=== PATIENT | female | born 1950 | race Two or more races ===

== ENCOUNTER 2025-03-14 10:45 | Inpatient (IN) | payer OTHER ==
[~2025-03-14] VITALS: Ht 167.6 cm; Wt 86.9 kg
[2025-03-14 11:15] VITALS: PULSE 60; RESP 14; O2SAT 96
--- NOTE | 2025-03-14 11:26 | ED.PDOC ---
Musculoskeletal HPI Comments 45-nu[age]ys-female presents to the ED via EMS with a chief complaint of LT knee pain s/p fall onset today (03/14/25). Patient was at home, walking down the stairs when she slipped, fell, landed on her buttocks, and LT leg was bent backwards. Patient is currently experiencing nausea, LT knee pain, rates pain 10/10, worsens with movement as well as LT ankle pain with swelling and tailbone pain. She was given 50 mg Fentanyl and 4 mg Zofran by EMS in route. PMHx DM, HTN. Denies head injury, LOC, abdominal pain, vomiting, diarrhea, headache, dizziness. No other symptoms or modifying factors present at this time. Chief Complaint: Fall Injury Time Seen by MD: 11:13 Primary Care Provider: UNKNOWN Reviewed Notes: Medications, Allergies Allergies: Coded Allergies: Codeine (Verified Allergy, Unknown, 03/14/25) Information Source: Patient, Emergency Med Personnel Mode of Arrival: EMS Location: Left Extremity Location: Ankle, Knee, Other (tailbone) Timing: Hours Prehospital treatment: Pain Meds (Fentanyl 50 mg, Zofran 4 mg ) Severity: Moderate Able to Move Extremity: Yes Bear Weight: Limited Pain: Moderate Mechanism: Spontaneous Circumstances: Fall Onset of Symptoms: After Trauma Symptoms: Swelling, Pain DVT Risk Factors: NONE Associated signs and symptoms: Knee pain, Ankle pain Past Medical History PAST MEDICAL HISTORY: DM, HTN Surgical History: Cholecystectomy, SSAS DEVELOPER History: No Pertinent SSAS DEVELOPER History Family History Family History: Reviewed,noncontributory to illness, No family hx of Cancer, No family hx of DM, No family hx of Heart tramaine, No family hx of HTN, No family hx ofKidney tramaine, No family hx of Liver tramaine, No family hx of Lung tramaine, No family hx of Stroke Social History Smoker: Non-Smoker Alcohol: Denies ETOH Use Drugs: Denies Drug Use Lives In: Home Constitutional: denies: chills, diaphoresis, fatigue, fever, malaise, sweats, weakness, others EENTM: denies: blurred vision, double vision, ear bleeding, ear discharge, ear drainage, ear pain, ear ringing, eye pain, eye redness, hearing loss, mouth pain, mouth swelling, nasal discharge, nose bleeding, nose congestion, nose pain , photophobia, tearing, throat pain, throat swelling, voice changes, others Respiratory: denies: cough, hemoptysis, orthopnea, SOB at rest, shortness of breath, SOB with excertion, stridor, wheezing, others Cardiovascular: denies: chest pain, dizzy spells, diaphoresis, Dyspnea on exertion, edema, irregular heart beat, left arm pain, lightheadedness, palpitations, PND, syncope, others Gastrointestinal: reports: nausea; denies: abdomen distended, abdominal pain, blood streaked bowels, constipated, diarrhea, dysphagia, difficulty swallowing, hematemesis, melena, poor appetite, poor fluid intake, rectal bleeding, rectal pain, vomiting, others Genitourinary: denies: abnormal vagina bleeding, burning, dyspareunia, dysuria, flank pain, frequency, hematuria, incontinence, pain, , vagina discharge, urgency, others Neurological: denies: dizziness, fainting, headache, left sided numbness, left sided weakness, numbness, paresthesia, pre-existing deficit, right sided numbness, right sided weakness, seizure, speech problems, tingling, tremors, weakness, others Musculoskeletal: reports: back pain (tailbone pain), others (LT knee pain, LT ankle pain, tailbone pain); denies: gout, joint pain, joint swelling, muscle pain, muscle stiffness, neck pain Integumetry: denies: bruises, change in color, change in hair/nails, dryness, laceration, lesions, lumps, rash, wounds, others Allergic/Immunocompromised: denies: Difficulty Healing, Frequent Infections, Hives, Itching, others Hematologic/Lymphatic: denies: anemia, blood clots, easy bleeding, easy bruising, swollen glands, others Endocrine: denies: excessive hunger, excessive sweating, excessive thirst, excessive urination, flushing, intolerance to cold, intolerance to heat, unexplained weight gain, unexplained weight loss, others Psychiatric: denies: anxiety, bipolar disorder, depression, hopeless, panic disorder, schizophrenia, sleepless, suicidal, others All Other Systems: Reviewed and Negative Physical Exam General Appearance: Mild Distress, Obese HEENT: Other (Pupils and face symmetric. Moist mucous membranes.) Neck: Full Range of Motion, Normal Inspection Respiratory: Chest Non-Tender, Lungs Clear, No Accessory Muscle Use, No Respiratory Distress, Normal Breath Sounds Cardiovascular: No Edema, No JVD, Regular Rate/Rhythm Breast Exam: Deferred Gastrointestinal: Non Tender, Soft Genitalia: Deferred Pelvic: Deferred Rectal: Deferred Extremities: Tender (Left knee diffuse soft tissue tenderness, left lower leg and ankle diffuse tenderness with lateral soft tissue swelling) Musculoskeletal : Extremity Location: Back (Midline and paraspinal lower lumbosacral/coccygeal tenderness to palpation) Neurologic: Alert (Oriented x4), Other (Able to move all extremities. Light touch sensation intact all extremities.) Cerebellar Function: NOT DONE Reflexes: NOT DONE Skin: Dry, Normal Color, Warm Lymphatic: NOT DONE Was a procedure done? Was a procedure done?: No Differential Diagnosis EXT Differential Diagnosis: Fracture, Sprain, Dislocation, Contusion, Strain, Arthritis X-Ray, Labs, Meds, VS Vital Signs Date Time Temp Pulse Resp B/P (MAP) Pulse Ox O2 Delivery O2 Flow Rate FiO2 03/14/25 14:26 130/39 03/14/25 14:00 98.6 66 12 130/39 (69) 96 98.6 03/14/25 11:15 60 14 96 Room Air* 0 21 03/14/25 11:15 98.4 60 14 124/43 (70) 96 98.4 03/14/25 10:59 98.3 65 20 164/76 (105) 99 98.3 Lab Test 03/14/25 11:35 Range/Units White Blood Count 7.3 4.4-10.8 10^3/uL Red Blood Count 4.41 4.0-5.20 10^6/uL Hemoglobin 11.4 L 12.2-16.2 g/dL Hematocrit 35.0 L 36.0-46.0 % Mean Corpuscular Volume 79.3 L 80.0-100.0 fL Mean Corpuscular Hemoglobin 25.9 L 28.0-32.0 pg Mean Corpuscular Hemoglobin Concent 32.7 32.0-36.0 g/dL Red Cell Distribution Width 15.2 H 11.8-14.3 % Platelet Count 360 140-450 10^3/uL Mean Platelet Volume 6.8 L 6.9-10.8 fL Neutrophils (%) (Auto) 69.6 37.0-80.0 % Lymphocytes (%) (Auto) 21.5 10.0-50.0 % Monocytes (%) (Auto) 6.0 0.0-12.0 % Eosinophils (%) (Auto) 2.1 0.0-7.0 % Basophils (%) (Auto) 0.8 0.0-2.0 % Neutrophils # (Auto) 5.1 1.6-8.6 10 ^3/uL Lymphocytes # (Auto) 1.6 0.4-5.4 10 ^3/uL Monocytes # (Auto) 0.4 0-1.3 10 ^3/uL Eosinophils # (Auto) 0.2 0-0.8 10 ^3/uL Basophils # (Auto) 0.1 0-0.2 10 ^3/uL Nucleated Red Blood Cells 0.0 % Sodium Level 141 136-145 mmol/L Potassium Level 3.4 L 3.5-5.1 mmol/L Chloride Level 104 98-107 mmol/L Carbon Dioxide Level 27 20-31 mmol/L Anion Gap 10 5-15 Blood Urea Nitrogen 24 H 9-23 mg/dL Creatinine 0.99 0.550-1.02 mg/dL Glomerular Filtration Rate Calc 59 >90 mL/min BUN/Creatinine Ratio 24.2 H 10.0-20.0 Serum Glucose 189 H 74-106 mg/dL Calcium Level 9.2 8.7-10.4 mg/dL Current Medications Medications (Trade) Dose Ordered Sig/Dejuan Route Start Time Stop Time Status Last Admin Fentanyl Citrate 50 mcg ONCE ONCE IV 03/14/25 14:30 03/14/25 14:31 DC 03/14/25 14:26 PROCEDURE(s): LKNE3 - L KNEE 3V XRAY REASON: fall pain ORDER NUMBER(s): [id number], ACCESSION NUMBER(s): [id number] EXAM: XR Left Knee, 3 Views CLINICAL INDICATION: fall pain TECHNIQUE: Three views of the left knee. COMPARISON: None FINDINGS: BONES/JOINTS: Unremarkable. No acute fracture. No dislocation. SOFT TISSUES: Unremarkable. OTHER FINDINGS: . IMPRESSION: No acute fracture. ATED BY: NADINE QUIROZ MD DICTATED DATE/TIME: 03/14/25 1253 PROCEDURE(s): LS2CT - LS SPINE WO CONTRAST REASON: fall, lo back and tailbone pain ORDER NUMBER(s): [id number], ACCESSION NUMBER(s): [id number] CLINICAL INFORMATION: Fall injury. Back and tailbone pain. TECHNIQUE: Axial CT images of the lumbar spine were obtained without IV contrast. Coronal and sagittal reformatted images were obtained, reviewed, and stored. One or more of the following dose reduction techniques were used: Automated exposure control. Adjustment of mA and/or kV according to patient size. CTDIvol = 38.94 mGy DLP = 1330.83 mGy-cm COMPARISON: None FINDINGS: Vertebral body alignment is within normal limits. Vertebral body heights are maintained. Posterior elements are intact. No acute fracture. Paraspinal soft tissues are unremarkable. Lumbar disc levels: L1-L2: Moderate disc space narrowing. No significant spinal canal stenosis. Facet hypertrophy with mild bilateral neural foraminal stenoses. L2-L3: Mild disc space narrowing. Diffuse disc bulge and congenital spinal canal narrowing contributes to [id number] spinal canal stenosis. Facet hy pertrophy and dorsal spurring contributes to moderate bilateral neural foraminal stenoses. L3-L4: Moderate disc space narrowing. Disc bulge and congenital spinal canal narrowing contributes to mild spinal canal stenosis and partial effacement of the lateral recesses. Facet hypertrophy and dorsal spurring contributes to moderate bilateral neural foraminal stenoses. Vacuum disc disease also noted. L4-L5: Vacuum disc disease visualized. Moderate disc space narrowing. Posterior disc osteophyte complex causes moderate spinal canal stenosis and partial effacement of the lateral recesses. Facet hypertrophy and encroachment of the neural foramina by the posterior disc osteophyte complex contributes to severe bilateral neural foraminal stenoses. There is a locule of gas within the right side of the spinal canal at this level, likely extension from the vacuum disc disease. L5-S1: Mild disc space narrowing. No significant spinal canal stenosis. Facet hypertrophy with moderate bilateral neural foraminal stenoses. IMPRESSION: 1. No evidence of acute fracture or spondylolisthesis in the lumbar spine. 2. Degenerative disc disease and facet disease with associated spinal canal, subarticular, and neural foraminal stenoses as detailed above. ATED BY: DARIO ROBERTS DO DICTATED DATE/TIME: 03/14/25 1242 PROCEDURE(s): LFEM - L FEMUR XRAY REASON: fall pain ORDER NUMBER(s): [id number], ACCESSION NUMBER(s): [id number] XY L FEMUR XRAY, INDICATION: fall pain TECHNICAL DATA: Frontal and lateral views were obtained of the left femur. COMPARISON: None FINDINGS: There is no osseous abnormality. Soft tissues are normal. IMPRESSION: No acute fracture or dislocation. ATED BY: VADIM ROSALES MD DICTATED DATE/TIME: 03/14/25 1247 PROCEDURE(s): LTBFB - L TIB FIB XRAY REASON: fall pain ORDER NUMBER(s): [id number], ACCESSION NUMBER(s): [id number] XY L TIB FIB XRAY, INDICATION: fall pain TECHNICAL DATA: Frontal and lateral views were obtained of the left leg. COMPARISON: None FINDINGS: There is no osseous abnormality. Soft tissues are normal. IMPRESSION: No acute fracture or dislocation. ATED BY: VADIM ROSALES MD DICTATED DATE/TIME: 03/14/25 1257 X-Ray, Labs, Meds, VS Comment 75-year-old female with a history of hypertension and diabetes brought in by EMS from home status post mechanical fall complaining of low back/coccygeal, left knee and ankle pain Vitals remarkable for BP 164/76 Exam remarkable for lower lumbosacral and coccygeal, left knee and ankle tenderness Rhythm strip independently interpreted by me: Sinus rhythm, rate 65, no ectopy. CT lumbosacral without contrast unremarkable Left femur, left knee, left tib-fib and left ankle x-rays no fracture or dislocation CBC unremarkable, basic metabolic panel remarkable for potassium 3.4 BUN 24, UA pending Patient had received IV fentanyl and Zofran by EMS prior to arrival Patient treated with the following in the ED: Fentanyl 50 mg IV for persistent severe left lower extremity pain, effervescent potassium 50 mEq p.o., 1 L 0.9 normal saline IV bolus On re-evaluation, patient states pain has somewhat improved, however she does not feel she would be able to ambulate if discharged home. Plan will be to admit the patient for pain control and PT/OT evaluation. Time of 1ST Reevaluation: 11:43 Reevaluation 1ST: Unchanged Patient Education/Counseling: Diagnosis, Treatment, Prognosis Family Education/Counseling: No Family Present Departure 1 Departure Time of Disposition: 14:30 Impression: Primary Impression: Coccyx contusion Qualified Codes: S30.0XXA - Contusion of lower back and pelvis, initial encounter Additional Impressions: Strain of knee and leg, left Qualified Codes: S86.912A - Strain of unspecified muscle(s) and tendon(s) at lower leg level, left leg, initial encounter Left ankle sprain Qualified Codes: S93.402A - Sprain of unspecified ligament of left ankle, initial encounter At risk for falls Intractable pain Disposition: ADMITTED INPATIENT Admit to: Med Surg Condition: Guarded Critical Care Note Critical Care Time?: No Stability Stability form required: No Heart Score Heart Score: Heart Score Response (Comments) Value History N/A 0 EKG N/A 0 Age N/A 0 Risk Factors N/A 0 Troponin N/A 0 Total 0 I personally scribed for LAWRENCE PIERSON MD ([email or web address]) on 03/14/25 at 11:26. Electronically submitted by Clara Adorno ([email or web address]). I personally scribed for LAWRENCE PIERSON MD ([email or web address]) on 03/14/25 at 13:01. Electronically submitted by Clara Adorno ([email or web address]). I personally scribed for LAWRENCE PIERSON MD ([email or web address]) on 03/14/25 at 13:03. Electronically submitted by Clara Adorno ([email or web address]). I personally scribed for LAWRENCE PIERSON MD ([email or web address]) on 03/14/25 at 13:03. Electronically submitted by Clara Adorno ([email or web address]). LAWRENCE PIERSON MD March 14, 2025 11:26
[2025-03-14 11:54] LABS: Basophils # (auto) 0.1 10 ^3/uL (0-0.2); Basophils % (auto) 0.8 % (0.0-2.0); Eosinophils # (auto) 0.2 10 ^3/uL (0-0.8); Eosinophils % (auto) 2.1 % (0.0-7.0); Hemoglobin 11.4 g/dL (12.2-16.2); Lymphocytes # (auto) 1.6 10 ^3/uL (0.4-5.4); Lymphocytes % (auto) 21.5 % (10.0-50.0); Mean Corpuscular Hemoglobin 25.9 pg (28.0-32.0); Mean Corpuscular Hgb Conc. 32.7 g/dL (32.0-36.0); Mean Corpuscular Volume 79.3 fL (80.0-100.0); Monocytes # (auto) 0.4 10 ^3/uL (0-1.3); Neutrophils # (auto) 5.1 10 ^3/uL (1.6-8.6); Neutrophils % (auto) 69.6 % (37.0-80.0); Platelet Count (auto) 360 10^3/uL (140-450); Red Blood Cells 4.41 10^6/uL (4.0-5.20); Red Cell Distribution Width 15.2 % (11.8-14.3); White Blood Cell 7.3 10^3/uL (4.4-10.8)
[2025-03-14 12:04] LABS: Chloride 104 mmol/L (98-107); Sodium 141 mmol/L (136-145)
[2025-03-14 12:05] LABS: Anion Gap 10 (5-15); Calcium 9.2 mg/dL (8.7-10.4); Carbon Dioxide 27 mmol/L (20-31)
[2025-03-14 12:06] LABS: Potassium 3.4 mmol/L (3.5-5.1)
[2025-03-14 12:10] LABS: BUN/Creatinine Ratio 24.2 (10.0-20.0)
[2025-03-14 12:11] LABS: Blood Urea Nitrogen 24 mg/dL (9-23); Glucose 189 mg/dL (74-106)
--- NOTE | 2025-03-14 12:44 | DVH ---
CLINICAL INFORMATION: Fall injury. Back and tailbone pain. TECHNIQUE: Axial CT images of the lumbar spine were obtained without IV contrast. Coronal and sagitt al reformatted images were obtained, reviewed, and stored. One or more of the following dose reducti on techniques were used: Automated exposure control. Adjustment of mA and/or kV according to patient size. CTDIvol = 38.94 mGy DLP = 1330.83 mGy-cm COMPARISON: None FINDINGS: Vertebral body alignment is within normal limits. Vertebral body heights are maintained. Posterior el ements are intact. No acute fracture. Paraspinal soft tissues are unremarkable. Lumbar disc levels: L1-L2: Moderate disc space narrowing. No significant spinal canal stenosis. Facet hypertrophy with m ild bilateral neural foraminal stenoses. L2-L3: Mild disc space narrowing. Diffuse disc bulge and congenital spinal canal narrowing contribute s to fiqx-he-fuymizmr spinal canal stenosis. Facet hypertrophy and dorsal spurring contributes to mod erate bilateral neural foraminal stenoses. L3-L4: Moderate disc space narrowing. Disc bulge and congenital spinal canal narrowing contributes to mild spinal canal stenosis and partial effacement of the lateral recesses. Facet hypertrophy and zachariah gio spurring contributes to moderate bilateral neural foraminal stenoses. Vacuum disc disease also no sierra. L4-L5: Vacuum disc disease visualized. Moderate disc space narrowing. Posterior disc osteophyte comp william causes moderate spinal canal stenosis and partial effacement of the lateral recesses. Facet hyper trophy and encroachment of the neural foramina by the posterior disc osteophyte complex contributes t o severe bilateral neural foraminal stenoses. There is a locule of gas within the right side of the s luma canal at this level, likely extension from the vacuum disc disease. L5-S1: Mild disc space narrowing. No significant spinal canal stenosis. Facet hypertrophy with modera te bilateral neural foraminal stenoses. IMPRESSION: 1. No evidence of acute fracture or spondylolisthesis in the lumbar spine. 2. Degenerative disc disease and facet disease with associated spinal canal, subarticular, and neural foraminal stenoses as detailed above.
--- NOTE | 2025-03-14 12:50 | DVH ---
XY L FEMUR XRAY, INDICATION: fall pain TECHNICAL DATA: Frontal and lateral views were obtained of the left femur. COMPARISON: None FINDINGS: There is no osseous abnormality. Soft tissues are normal. IMPRESSION: No acute fracture or dislocation.
--- NOTE | 2025-03-14 12:55 | DVH ---
EXAM: XR Left Knee, 3 Views CLINICAL INDICATION: fall pain TECHNIQUE: Three views of the left knee. COMPARISON: None FINDINGS: BONES/JOINTS: Unremarkable. No acute fracture. No dislocation. SOFT TISSUES: Unremarkable. OTHER FINDINGS: . IMPRESSION: No acute fracture.
--- NOTE | 2025-03-14 12:59 | DVH ---
XY L TIB FIB XRAY, INDICATION: fall pain TECHNICAL DATA: Frontal and lateral views were obtained of the left leg. COMPARISON: None FINDINGS: There is no osseous abnormality. Soft tissues are normal. IMPRESSION: No acute fracture or dislocation.
[2025-03-14] MEDS: fentaNYL CITRATE 100 MCG/2 ML VL IV ONE (14:26)
[2025-03-14] MEDS: SODIUM CHLORIDE 0.9% 1,000 ML IV ONE (14:49)
[2025-03-14] MEDS: POTASSIUM EFFERVESENT TAB 25 MEQ PO ONE (14:49)
[2025-03-14] MEDS ORDERED: LOSA-534 PO (15:43)
[2025-03-14] MEDS ORDERED: ATOR10TA52 PO (15:43)
[2025-03-14] MEDS ORDERED: CHOL20003 PO (15:43)
[2025-03-14] MEDS ORDERED: HYDR25TA5 PO (15:43)
[2025-03-14] MEDS ORDERED: ASPI-325 PO (15:43)
[2025-03-14] MEDS ORDERED: METO-159 PO (15:43)
[2025-03-14] MEDS ORDERED: MORPHINE SULFATE INJ 2 MG/ml SYRG IV PRN (15:45)
[2025-03-14] MEDS ORDERED: DEXTROSE (50%) 50ML SYRG IV PRN (15:45)
[2025-03-14] MEDS ORDERED: ACETAMINOPHEN 325 MG TAB PO PRN (15:45)
--- NOTE | 2025-03-14 15:49 | DVHHP2 ---
History of Present Illness Reason for Visit: Left knee and left ankle pain status post mechanical fall History of Present Illness Payton Frye is a 75-year-old female with past medical history of hypertension, diabetes, kidney stones, degenerative disc disease, cholecystectomy, and who presents to the ED with left knee pain and left ankle pain status post mechanical fall. Patient states that she was walking down 2 sets of stairs when she finally reached the bottom of the 1st 1 she made a turn and tripped and fell from the carpet on the stairs and fell down the 2nd set of stairs and landed on the last step. She reports that her left leg went back completely. She complains 10/10 aching pain that is constant. 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 Patient's Ike is at the bedside. Patient denies any chest pain, fever, chills, shortness of breath, lightheadedness, weakness, dizziness, abdominal pain, nausea, vomiting, diarrhea, recent ingestion of spoiled food, recent travels, or recent sick contacts. Cardiovascular: HTN Endocrine: Diabetes Past Medical History Degenerative disc disease Kidney stones Past Surgical History: Cholecystectomy, Family History: Other (Both parents ) Smoke: No ALCOHOL: none Drugs: None Lives: with Family Domestic Violence: Neg Review of Systems Musculoskeletal: other (Left knee pain and ankle pain) Allergies: Coded Allergies: Codeine (Verified Allergy, Unknown, 03/14/25) Medications Current Medications Medications Dose Ordered Sig/Dejuan Route Start Time Stop Time Status Last Admin Dose Admin Diagnostic Test (Pha) 1 strip ACHS 03/14/25 17:00 UNV Insulin Human Regular ACHS SC 03/14/25 17:00 UNV Dextrose 50 ml UD PRN IV 03/14/25 15:45 UNV Acetaminophen/ Hydrocodone Bitart 1 tab Q4HP PRN PO 03/14/25 15:45 UNV Ondansetron HCl 4 mg Q4HP PRN IV 03/14/25 15:45 UNV Acetaminophen 650 mg Q6HP PRN PO 03/14/25 15:45 UNV Morphine Sulfate 2 mg Q4HPRN PRN IV 03/14/25 15:45 UNV Enoxaparin Sodium 40 mg DAILY SC 03/14/25 15:45 UNV Exam Vital Signs Vital Signs Date Time Temp Pulse Resp B/P (MAP) Pulse Ox O2 Delivery O2 Flow Rate FiO2 03/14/25 14:26 130/39 03/14/25 14:00 98.6 66 12 96 98.6 03/14/25 11:15 Room Air* 0 21 General Appearance: Alert, Oriented X3, Cooperative, No acute distress HEENT: Atraumatic, PERRLA, EOMI, Mucous membr. moist/pink Respiratory: Clear to auscultation, Normal air movement Cardiovascular: Regular rate, Normal S1, Normal S2, No murmurs Abdominal: Normal bowel sounds, Soft, No tenderness, No hepatospenomegaly, No masses Extremities: No edema Neuro: Normal speech, Normal tone, Sensation intact Psych/Mental Status: Mental status NL, Mood NL Labs/Xrays Labs Test 03/14/25 11:35 Range/Units White Blood Count 7.3 4.4-10.8 10^3/uL Red Blood Count 4.41 4.0-5.20 10^6/uL Hemoglobin 11.4 L 12.2-16.2 g/dL Hematocrit 35.0 L 36.0-46.0 % Mean Corpuscular Volume 79.3 L 80.0-100.0 fL Mean Corpuscular Hemoglobin 25.9 L 28.0-32.0 pg Mean Corpuscular Hemoglobin Concent 32.7 32.0-36.0 g/dL Red Cell Distribution Width 15.2 H 11.8-14.3 % Platelet Count 360 140-450 10^3/uL Mean Platelet Volume 6.8 L 6.9-10.8 fL Neutrophils (%) (Auto) 69.6 37.0-80.0 % Lymphocytes (%) (Auto) 21.5 10.0-50.0 % Monocytes (%) (Auto) 6.0 0.0-12.0 % Eosinophils (%) (Auto) 2.1 0.0-7.0 % Basophils (%) (Auto) 0.8 0.0-2.0 % Neutrophils # (Auto) 5.1 1.6-8.6 10 ^3/uL Lymphocytes # (Auto) 1.6 0.4-5.4 10 ^3/uL Monocytes # (Auto) 0.4 0-1.3 10 ^3/uL Eosinophils # (Auto) 0.2 0-0.8 10 ^3/uL Basophils # (Auto) 0.1 0-0.2 10 ^3/uL Nucleated Red Blood Cells 0.0 % Sodium Level 141 136-145 mmol/L Potassium Level 3.4 L 3.5-5.1 mmol/L Chloride Level 104 98-107 mmol/L Carbon Dioxide Level 27 20-31 mmol/L Anion Gap 10 5-15 Blood Urea Nitrogen 24 H 9-23 mg/dL Creatinine 0.99 0.550-1.02 mg/dL Glomerular Filtration Rate Calc 59 >90 mL/min BUN/Creatinine Ratio 24.2 H 10.0-20.0 Serum Glucose 189 H 74-106 mg/dL Calcium Level 9.2 8.7-10.4 mg/dL US BiLat Lower DVT HISTORY: r/o dvt COMPARISON: None TECHNIQUE: Duplex doppler evaluation of the deep venous system of the lower extremity from the common femoral veins, superficial femoral vein, great saphenous vein, deep femoral vein, popliteal vein, and calf veins, including color doppler and spectral/pulsed waveform analysis, was performed. FINDINGS: Right: - Common femoral vein: Compressible - Deep femoral vein: Compressible - Femoral vein: Compressible - Popliteal vein: Compressible - Posterior tibial vein: Waveforms present - Other: Nothing Left: - Common femoral vein: Compressible - Deep femoral vein: Compressible - Femoral vein: Compressible - Popliteal vein: Compressible - Posterior tibial vein: Waveforms present - Other: Nothing IMPRESSION: No right or left lower extremity deep venous thrombosis. EXAM: XR Left Knee, 3 Views CLINICAL INDICATION: fall pain TECHNIQUE: Three views of the left knee. COMPARISON: None FINDINGS: BONES/JOINTS: Unremarkable. No acute fracture. No dislocation. SOFT TISSUES: Unremarkable. OTHER FINDINGS: . IMPRESSION: No acute fracture. XY L TIB FIB XRAY, INDICATION: fall pain TECHNICAL DATA: Frontal and lateral views were obtained of the left leg. COMPARISON: None FINDINGS: There is no osseous abnormality. Soft tissues are normal. IMPRESSION: No acute fracture or dislocation. CLINICAL INFORMATION: Fall injury. Back and tailbone pain. TECHNIQUE: Axial CT images of the lumbar spine were obtained without IV contrast. Coronal and sagittal reformatted images were obtained, reviewed, and stored. One or more of the following dose reduction techniques were used: Automated exposure control. Adjustment of mA and/or kV according to patient size. CTDIvol = 38.94 mGy DLP = 1330.83 mGy-cm COMPARISON: None FINDINGS: Vertebral body alignment is within normal limits. Vertebral body heights are maintained. Posterior elements are intact. No acute fracture. Paraspinal soft tissues are unremarkable. Lumbar disc levels: L1-L2: Moderate disc space narrowing. No significant spinal canal stenosis. Facet hypertrophy with mild bilateral neural foraminal stenoses. L2-L3: Mild disc space narrowing. Diffuse disc bulge and congenital spinal canal narrowing contributes to [id number] spinal canal stenosis. Facet h ypertrophy and dorsal spurring contributes to moderate bilateral neural foraminal stenoses. L3-L4: Moderate disc space narrowing. Disc bulge and congenital spinal canal narrowing contributes to mild spinal canal stenosis and partial effacement of the lateral recesses. Facet hypertrophy and dorsal spurring contributes to moderate bilateral neural foraminal stenoses. Vacuum disc disease also noted. L4-L5: Vacuum disc disease visualized. Moderate disc space narrowing. Posterior disc osteophyte complex causes moderate spinal canal stenosis and partial effacement of the lateral recesses. Facet hypertrophy and encroachment of the neural foramina by the posterior disc osteophyte complex contributes to severe bilateral neural foraminal stenoses. There is a locule of gas within the right side of the spinal canal at this level, likely extension from the vacuum disc disease. L5-S1: Mild disc space narrowing. No significant spinal canal stenosis. Facet hypertrophy with moderate bilateral neural foraminal stenoses. IMPRESSION: 1. No evidence of acute fracture or spondylolisthesis in the lumbar spine. 2. Degenerative disc disease and facet disease with associated spinal canal, subarticular, and neural foraminal stenoses as detailed above. XY L FEMUR XRAY, INDICATION: fall pain TECHNICAL DATA: Frontal and lateral views were obtained of the left femur. COMPARISON: None FINDINGS: There is no osseous abnormality. Soft tissues are normal. IMPRESSION: No acute fracture or dislocation. XY L FEMUR XRAY, INDICATION: fall pain TECHNICAL DATA: Frontal and lateral views were obtained of the left femur. COMPARISON: None FINDINGS: There is no osseous abnormality. Soft tissues are normal. IMPRESSION: No acute fracture or dislocation. Assessment/Plan Assessment/Plan Assessment Left knee and ankle pain status post mechanical fall likely contusion Hypokalemia Diabetes type 2 Hard of hearing History of hypertension History of degenerative disc disease History of nephrolithiasis History of cholecystectomy History of Plan Admit to tele Left knee x-ray noted NS 1L given ED Replete lytes Pain management Antiemetics UA Left tib-fib x-ray noted Left femur x-ray noted CT lumbar spine noted Hemoglobin A1c ISS and Accu-Cheks Diet Ultrasound bilateral lower extremity venous Home medications reconciled DVT prophylaxis-Lovenox PUD prophylaxis-not indicated no history of GERD or GI bleed Discussed plan of care with patient, patient's spouse, and nurse Plan discussed with: Patient My Orders Orders - DIRK WHARTON Procedure Category Date Status Time Hemoglobin A1c LAB 03/14/25 In Process 15:39 Glucose Blood PHA 03/14/25 Logged (Accu-Chek Comfort 17:00 Insulin R (Human) PHA 03/14/25 Logged (Insulin R) 17:00 Dextrose 50% Syringe PHA 03/14/25 Logged 15:45 Admit ADMIT 03/14/25 Transmitted 15:39 Allergies JANKI 03/14/25 In Process 15:39 Code Status CODE 03/14/25 Transmitted 15:39 Hydrocodone-Acet PHA 03/14/25 Logged 5/325mg Tab ([place] 15:45 Ondansetron Hcl PHA 03/14/25 Logged (Zofran) 15:45 Complete Blood Count LAB 03/15/25 Verified 04:00 Comprehensive LAB 03/15/25 Verified Metabolic Panel 04:00 Cardiac DIET 03/14/25 Transmitted Diet-2gna,Lofat,Lochol Dinner Acetaminophen Tablet PHA 03/14/25 Logged (Tylenol Tablet) 15:45 Morphine Sulfate PHA 03/14/25 Logged Injection 15:45 Enoxaparin Sodium PHA 03/14/25 Logged (Lovenox) 15:45 Bilat Lower Dvt US 03/14/25 Logged 15:41 Date of Service: March 14, 2025 Billing Provider: DIRK WHARTON Common Visit Codes: [id number] INP/OBS CARE (HIGH) DIRK WHARTON March 14, 2025 15:49
[2025-03-14] MEDS: ENOXAPARIN SOD 40 MG/0.4 ML SYRINGE SC SCH (16:00)
--- NOTE | 2025-03-14 16:21 | DVH ---
US BiLat Lower DVT HISTORY: r/o dvt COMPARISON: None TECHNIQUE: Duplex doppler evaluation of the deep venous system of the lower extremity from the common femoral veins, superficial femoral vein, great saphenous vein, deep femoral vein, popliteal vein, an d calf veins, including color doppler and spectral/pulsed waveform analysis, was performed. FINDINGS: Right: - Common femoral vein: Compressible - Deep femoral vein: Compressible - Femoral vein: Compressible - Popliteal vein: Compressible - Posterior tibial vein: Waveforms present - Other: Nothing Left: - Common femoral vein: Compressible - Deep femoral vein: Compressible - Femoral vein: Compressible - Popliteal vein: Compressible - Posterior tibial vein: Waveforms present - Other: Nothing IMPRESSION: No right or left lower extremity deep venous thrombosis.
[2025-03-14] MEDS: InsuLIN REG 1unit/0.01ml Soln (100units/ml) SC SCH (17:00)
[2025-03-14] MEDS: ACCU-CHEK COMFORT CURVE STRIP VI SCH (17:23)
[2025-03-14 18:08] LABS: Urine Bacteria FEW /hpf (None Seen); Urine Blood Negative /uL (Negative); Urine Budding Yeast OCCASIONAL /hpf (None Seen); Urine Clarity Turbid (Clear); Urine Color Colorless (Yellow); Urine Protein, UAD Negative (Negative); Urine Specific Gravity 1.013 (1.001-1.035); Urine Squamous Epithelial Cell FEW /hpf (<5); Urine Urobilinogen Normal (Negative); Urine WBC 63 /HPF (0-5)
[2025-03-14 18:36] VITALS: BP 135/49; PULSE 66; RESP 20; TEMP 98.1; O2SAT 97
[2025-03-14 20:00] VITALS: PULSE 67; PULSE 71; RESP 20; O2SAT 95
[2025-03-14 21:00] VITALS: BP 126/47; PULSE 71; RESP 20; TEMP 98.8; O2SAT 94
[2025-03-14] MEDS: ATORVASTATIN 20 MG TAB PO SCH (21:48)
[2025-03-14] MEDS: HYDROcodone-ACET 5/325MG TAB PO PRN (23:09)
[2025-03-15] VITALS (9 sets, daily range): BP systolic 100–147; BP diastolic 43–68; PULSE 55–76; RESP 16–20; TEMP 97.4–98.7; O2SAT 95–100
[2025-03-15 07:07] LABS: Basophils # (auto) 0.1 10 ^3/uL (0-0.2); Basophils % (auto) 0.9 % (0.0-2.0); Eosinophils # (auto) 0.1 10 ^3/uL (0-0.8); Eosinophils % (auto) 1.7 % (0.0-7.0); Hematocrit 33.4 % (36.0-46.0); Lymphocytes # (auto) 1.9 10 ^3/uL (0.4-5.4); Lymphocytes % (auto) 25.8 % (10.0-50.0); Mean Corpuscular Hgb Conc. 32.9 g/dL (32.0-36.0); Mean Corpuscular Volume 78.8 fL (80.0-100.0); Monocytes # (auto) 0.7 10 ^3/uL (0-1.3); Monocytes % (auto) 8.8 % (0.0-12.0); Neutrophils # (auto) 4.7 10 ^3/uL (1.6-8.6); Neutrophils % (auto) 62.8 % (37.0-80.0); Nucleated Red Blood Cells % 0.1 %; Platelet Count (auto) 358 10^3/uL (140-450); Red Blood Cells 4.24 10^6/uL (4.0-5.20); White Blood Cell 7.4 10^3/uL (4.4-10.8)
[2025-03-15 07:30] LABS: Alanine Aminotransferase 15 U/L (7-40); Albumin 4.2 g/dL (3.2-4.8); Alkaline Phosphatase 43 U/L (46-116); Anion Gap 10 (5-15); Aspartate Aminotransferase 16 U/L (13-40); BUN/Creatinine Ratio 19.1 (10.0-20.0); Blood Urea Nitrogen 17 mg/dL (9-23); Calcium 9.8 mg/dL (8.7-10.4); Carbon Dioxide 25 mmol/L (20-31); Chloride 105 mmol/L (98-107); Glucose 113 mg/dL (74-106); Potassium 3.7 mmol/L (3.5-5.1); Sodium 140 mmol/L (136-145); Total Protein 6.7 g/dL (5.7-8.2)
[2025-03-15 07:34] LABS: Bilirubin, Total 1.8 mg/dL (0.2-1.0)
[2025-03-15] MEDS: METOPROLOL TARTRATE 50 MG TAB PO SCH (08:20)
[2025-03-15] MEDS: CHOLECALCIFEROL (VITD3) 1,000UNIT=25mCg TAB PO SCH (08:21)
[2025-03-15] MEDS: ASPirin-EC 81 mg tab PO SCH (08:21)
[2025-03-15] MEDS: hydroCHLOROthiazide 25 MG TAB PO SCH (08:21)
[2025-03-15] MEDS: LOSARTAN POTASSIUM 50 MG TAB PO SCH (08:22)
[2025-03-15] MEDS ORDERED: PATIENTS OWN MEDICATION (Metoprolol Tartrate 1 TAB) PO SCH (10:00)
[2025-03-15] MEDS ORDERED: PATIENTS OWN MEDICATION (Cholecalciferol (Vitamin D-3 Super Strengt) 1 TAB) PO SCH (10:00)
--- NOTE | 2025-03-15 11:58 | DVHPN2 ---
Changes from previous H/P or p: No Changes, Changes Musculoskeletal: other (Left knee pain and ankle pain) Objective Vitals Vital Signs Date Time Temp Pulse Resp B/P (MAP) Pulse Ox O2 Delivery O2 Flow Rate FiO2 03/15/25 09:20 65 130/54 03/15/25 09:07 97.7 18 95 97.7 03/15/25 08:00 Room Air* 0 21 Intake/Output Intake and Output 03/15/25 07:00 Intake Total 1300 ml Balance 1300 ml Intake Oral 300 ml IV Total 1000 ml # Voids 3 # Bowel Movements 1 Medications Current Medications Medications Dose Ordered Sig/Dejuan Route Start Time Stop Time Status Last Admin Dose Admin Diagnostic Test (Pha) 1 strip ACHS 03/14/25 17:00 03/15/25 06:23 1 STRIP Insulin Human Regular ACHS SC 03/14/25 17:00 Dextrose 50 ml UD PRN IV 03/14/25 15:45 Acetaminophen/ Hydrocodone Bitart 1 tab Q4HP PRN PO 03/14/25 15:45 03/15/25 08:49 1 TAB Ondansetron HCl 4 mg Q4HP PRN IV 03/14/25 15:45 Acetaminophen 650 mg Q6HP PRN PO 03/14/25 15:45 Morphine Sulfate 2 mg Q4HPRN PRN IV 03/14/25 15:45 Enoxaparin Sodium 40 mg DAILY SC 03/14/25 15:45 03/15/25 10:03 40 MG Aspirin 81 mg DAILY PO 03/15/25 10:00 03/15/25 08:21 81 MG Hydrochlorothiazide 25 mg DAILY PO 03/15/25 10:00 03/15/25 08:21 25 MG Losartan Potassium 50 mg DAILY PO 03/15/25 10:00 03/15/25 08:22 50 MG Patient Own Medication 1 tab DAILY PO 03/15/25 10:00 UNV Patient Own Medication 1 tab DAILY PO 03/15/25 10:00 UNV Atorvastatin Calcium 10 mg HS PO 03/14/25 22:00 03/14/25 21:48 10 MG Cholecalciferol 2,000 unit DAILY PO 03/15/25 10:00 03/15/25 08:21 2,000 UNIT Metoprolol Tartrate 100 mg DAILY PO 03/15/25 10:00 03/15/25 08:20 100 MG Laboratory Results Laboratory Tests 03/15/25 06:19 Chemistry Test 03/15/25 06:19 Albumin 4.2 g/dL (3.2-4.8) Calcium Level 9.8 mg/dL (8.7-10.4) Total Protein 6.7 g/dL (5.7-8.2) LFT Test 03/15/25 06:19 Alanine Aminotransferase (ALT) 15 U/L (7-40) Alkaline Phosphatase 43 U/L (46-116) L Aspartate Amino Transferase (AST) 16 U/L (13-40) Total Bilirubin 1.8 mg/dL (0.2-1.0) H Urinalysis Test 03/14/25 16:20 Urine Color Colorless (Yellow) Urine Clarity Turbid (Clear) H Urine pH 7.0 (5.0-9.0) Urine Specific [place] 1.013 (1.001-1.035) Urine Protein Negative (Negative) Urine Ketones Negative (Negative) Urine Blood Negative /uL (Negative) Urine Nitrite 1+ (Negative) H Urine Bilirubin Negative (Negative) Urine Urobilinogen Normal mg/dL (Negative) Urine Leukocyte Esterase 2+ /uL (Negative) Urine RBC 3 /hpf (0 - 4) Urine Microscopic WBC 63 /HPF (0-5) H Urine Squamous Epithelial Cells Few /hpf (<5) Urine Bacteria Few /hpf (None Seen) H Urine Yeast (Budding) Occasional /hpf (None Urine Glucose Normal mg/dL (Normal) Labs and/or images reviewed: Labs reviewed by me, Image(s) reviewed by me Assessment/Plan Assessment/Plan Acute pain left knee and ankle status post mechanical fall: X-ray left femur left knee left ankle negative Chronic DJD lumbar spine, LS spine negative for any fracture DVT ruled out left lower extremety Hypotension Diabetes History of kidney stones UTI urine cultures Rocephin Time spent 50 minutes Advanced care planning time 20 minutes Patient is full code Left lower front chest pain rule out rib fractures: CT chest ordered Plan discussed with: Patient My Orders Orders - SAMPSON BLAKELY MD Procedure Category Date Status Time Urine Bacterial LD 03/15/25 Transmitted Culture 11:51 Ceftriaxone Ivpb PHA 03/16/25 Verified Rocephin 09:00 Ceftriaxone Ivpb PHA 03/15/25 Verified Rocephin 12:00 Date of Service: March 15, 2025 Billing Provider: SAMPSON BLAKELY MD Common Visit Codes: [id number] INP/OBS CARE(HIGH) SAMPSON BLAKELY MD March 15, 2025 11:58
[2025-03-15] MEDS: cefTRIAXone 1GM/50ML D5W 50 ML IV ONE (12:48)
[2025-03-15] MEDS: ONDANSETRON HCL 4 MG/2 ML VIAL IV PRN (13:55)
[2025-03-16] VITALS: BP 138/67; PULSE 66; RESP 20; TEMP 98.4; O2SAT 99
[2025-03-16 05:00] VITALS: BP 154/66; PULSE 65; RESP 20; TEMP 98.2; O2SAT 94
[2025-03-16 08:00] VITALS: PULSE 74; RESP 20; O2SAT 97
[2025-03-16 08:30] VITALS: BP 130/63; PULSE 71; RESP 16; TEMP 97.7; O2SAT 97
[2025-03-16] MEDS: cefTRIAXone 1GM/50ML D5W 50 ML IV SCH (08:44)
[2025-03-16 12:32] VITALS: BP 126/71; PULSE 67; RESP 16; TEMP 97.9; O2SAT 99
--- NOTE | 2025-03-16 12:58 | DVH ---
Procedure: CT CHEST WITHOUT CONTRAST Reason for study/Clinical History: R/O Left Rib fracture Comparison Study: None Exam Date: 03/16/2025 12:09 PM TECHNIQUE: Multidetector CT of the chest was performed from the lung apices to the upper abdomen with out the use of intravenous contract. Axial, coronal and sagittal multiplanar reformats were performed . Radiation Dose Information: CT Dose: CTDI volume is 16.17 mGy. Dose-length product is 564.24 mGy*cm The dose indicators for CT are the volume Computed Tomography (CT) Dose Index (CTDIvol) and the Dose Length Product (DLP), and are measured in units of mGy and mGy-cm, respectively. These indicators are not patient dose, but values generated from the CT scanner acquisition factors. The report includes radiation exposure data for exposures received during this examination. FINDINGS: Lower neck: Normal thyroid. Lungs: No focal consolidation, pleural effusion or pneumothorax. Heart/Vascular Structures: Heart size is enlarged. No pericardial effusion. Coronary artery calcifica tion is present. The aorta is tortuous. Lymph Nodes: No adenopathy Pleura: No pleural effusion or significant pneumothorax. Musculoskeletal: No acute osseous abnormality. No evidence of rib fracture Soft tissues: Normal. Upper abdomen: Limited portions of the upper abdomen are unremarkable. IMPRESSION: 1. No acute intrathoracic abnormality. No evidence of rib fracture. Signs of chronic hypertensive ath erosclerotic cardiovascular disease Radiation optimization: All CT scans at this facility use at least one of these dose optimization cindi hniques: automated exposure control mA and/or kV adjustment per patient size (includes targeted exam s where dose is matched to clinical indication) or iterative reconstruction.
[2025-03-16] MEDS ORDERED: HYDR-4902 PO (13:23)
[2025-03-16] MEDS ORDERED: LEVO500T91 PO (13:25)
--- NOTE | 2025-03-16 13:25 | DVHPN2 ---
Reviewed: Care Plan, H&P, Labs, Medications, Previous Orders, Radiology Changes from previous H/P or p: No Changes Musculoskeletal: other (Left knee pain and ankle pain) Objective Vitals Vital Signs Date Time Temp Pulse Resp B/P (MAP) Pulse Ox O2 Delivery O2 Flow Rate FiO2 03/16/25 12:32 97.9 67 16 126/71 (89) 99 97.9 03/16/25 08:00 Room Air* 0 21 Intake/Output Intake and Output 03/16/25 07:00 Intake Total 860 ml Balance 860 ml Intake Oral 860 ml # Voids 2 Medications Current Medications Medications Dose Ordered Sig/Dejuan Route Start Time Stop Time Status Last Admin Dose Admin Diagnostic Test (Pha) 1 strip ACHS 03/14/25 17:00 03/16/25 11:54 1 STRIP Insulin Human Regular ACHS SC 03/14/25 17:00 Dextrose 50 ml UD PRN IV 03/14/25 15:45 Acetaminophen/ Hydrocodone Bitart 1 tab Q4HP PRN PO 03/14/25 15:45 03/16/25 08:39 1 TAB Ondansetron HCl 4 mg Q4HP PRN IV 03/14/25 15:45 03/15/25 20:42 4 MG Acetaminophen 650 mg Q6HP PRN PO 03/14/25 15:45 Morphine Sulfate 2 mg Q4HPRN PRN IV 03/14/25 15:45 Enoxaparin Sodium 40 mg DAILY SC 03/14/25 15:45 03/16/25 10:00 40 MG Aspirin 81 mg DAILY PO 03/15/25 10:00 03/16/25 08:39 81 MG Hydrochlorothiazide 25 mg DAILY PO 03/15/25 10:00 03/16/25 08:42 25 MG Losartan Potassium 50 mg DAILY PO 03/15/25 10:00 03/16/25 08:40 50 MG Patient Own Medication 1 tab DAILY PO 03/15/25 10:00 UNV Patient Own Medication 1 tab DAILY PO 03/15/25 10:00 UNV Atorvastatin Calcium 10 mg HS PO 03/14/25 22:00 03/14/25 21:48 10 MG Cholecalciferol 2,000 unit DAILY PO 03/15/25 10:00 03/16/25 08:40 2,000 UNIT Metoprolol Tartrate 100 mg DAILY PO 03/15/25 10:00 03/16/25 08:43 100 MG Ceftriaxone Sodium 50 ml @ 100 mls/hr DAILY@09 IV 03/16/25 09:00 03/16/25 08:44 100 MLS/HR Laboratory Results Laboratory Tests 03/15/25 06:19 Urinalysis Test 03/14/25 16:20 Urine Color Colorless (Yellow) Urine Clarity Turbid (Clear) H Urine pH 7.0 (5.0-9.0) Urine Specific [place] 1.013 (1.001-1.035) Urine Protein Negative (Negative) Urine Ketones Negative (Negative) Urine Blood Negative /uL (Negative) Urine Nitrite 1+ (Negative) H Urine Bilirubin Negative (Negative) Urine Urobilinogen Normal mg/dL (Negative) Urine Leukocyte Esterase 2+ /uL (Negative) Urine RBC 3 /hpf (0 - 4) Urine Microscopic WBC 63 /HPF (0-5) H Urine Squamous Epithelial Cells Few /hpf (<5) Urine Bacteria Few /hpf (None Seen) H Urine Yeast (Budding) Occasional /hpf (None Urine Glucose Normal mg/dL (Normal) Labs and/or images reviewed: Labs reviewed by me, Image(s) reviewed by me Assessment/Plan Assessment/Plan Acute pain left knee and ankle status post mechanical fall: X-ray left femur left knee left ankle negative Chronic DJD lumbar spine, LS spine negative for any fracture DVT ruled out left lower extremety Hypotension Diabetes History of kidney stones UTI urine cultures Rocephin Time spent 50 minutes Advanced care planning time 20 minutes Patient is full code Left lower front chest pain, CT chest without contrast shows no rib fractures Plan discussed with: Patient My Orders Orders - SAMPSON BLAKELY MD Procedure Category Date Status Time Chest Without Contrast CT 03/16/25 Resulted 10:36 Date of Service: March 16, 2025 Billing Provider: SAMPSON BLAKELY MD Common Visit Codes: [id number] INP/OBS CARE(HIGH) SAMPSON BLAKELY MD March 16, 2025 13:25
--- NOTE | 2025-03-16 13:29 | DVHDS2 ---
Discharge Summary Date of Admission March 14, 2025 at 15:39 Date of Discharge: March 16, 2025 Admitting Diagnosis Left knee and ankle pain status post fall Wounds: None Labs/Diagnostic Data: Laboratory Results Test 03/16/25 05:20 03/15/25 06:19 03/14/25 16:20 03/14/25 11:35 POC Glucose 102 mg/dl (70-106) White Blood Count 7.4 10^3/uL (4.4-10.8) Red Blood Count 4.24 10^6/uL (4.0-5.20) Hemoglobin 11.0 g/dL (12.2-16.2) Hematocrit 33.4 % (36.0-46.0) Mean Corpuscular Volume 78.8 fL (80.0-100.0) Mean Corpuscular Hemoglobin 26.0 pg (28.0-32.0) Mean Corpuscular Hemoglobin Concent 32.9 g/dL (32.0-36.0) Red Cell Distribution Width 15.0 % (11.8-14.3) Platelet Count 358 10^3/uL (140-450) Mean Platelet Volume 7.0 fL (6.9-10.8) Neutrophils (%) (Auto) 62.8 % (37.0-80.0) Lymphocytes (%) (Auto) 25.8 % (10.0-50.0) Monocytes (%) (Auto) 8.8 % (0.0-12.0) Eosinophils (%) (Auto) 1.7 % (0.0-7.0) Basophils (%) (Auto) 0.9 % (0.0-2.0) Neutrophils # (Auto) 4.7 10 ^3/uL (1.6-8.6) Lymphocytes # (Auto) 1.9 10 ^3/uL (0.4-5.4) Monocytes # (Auto) 0.7 10 ^3/uL (0-1.3) Eosinophils # (Auto) 0.1 10 ^3/uL (0-0.8) Basophils # (Auto) 0.1 10 ^3/uL (0-0.2) Nucleated Red Blood Cells 0.1 % Sodium Level 140 mmol/L (136-145) Potassium Level 3.7 mmol/L (3.5-5.1) Chloride Level 105 mmol/L (98-107) Carbon Dioxide Level 25 mmol/L (20-31) Anion Gap 10 (5-15) Blood Urea Nitrogen 17 mg/dL (9-23) Creatinine 0.89 mg/dL (0.550-1.02) Glomerular Filtration Rate Calc 68 mL/min (>90) BUN/Creatinine Ratio 19.1 (10.0-20.0) Serum Glucose 113 mg/dL (74-106) Calcium Level 9.8 mg/dL (8.7-10.4) Total Bilirubin 1.8 mg/dL (0.2-1.0) Aspartate Amino Transferase (AST) 16 U/L (13-40) Alanine Aminotransferase (ALT) 15 U/L (7-40) Alkaline Phosphatase 43 U/L (46-116) Total Protein 6.7 g/dL (5.7-8.2) Albumin 4.2 g/dL (3.2-4.8) Urine Color Colorless (Yellow) Urine Clarity Turbid (Clear) Urine pH 7.0 (5.0-9.0) Urine Specific [place] 1.013 (1.001-1.035) Urine Protein Negative (Negative) Urine Ketones Negative (Negative) Urine Blood Negative /uL (Negative) Urine Nitrite 1+ (Negative) Urine Bilirubin Negative (Negative) Urine Urobilinogen Normal mg/dL (Negative) Urine Leukocyte Esterase 2+ /uL (Negative) Urine RBC 3 /hpf (0 - 4) Urine Microscopic WBC 63 /HPF (0-5) Urine Squamous Epithelial Cells Few /hpf (<5) Urine Bacteria Few /hpf (None Seen) Urine Yeast (Budding) Occasional /hpf (None Urine Glucose Normal mg/dL (Normal) Hemoglobin A1c 6.9 % A1C (<5.7) Other Laboratory Tests 03/15/25 06:19 Brief Hx & Hospital Course: 85-year-old female with a history of diabetes hypertension kidney stones came in after mechanical fall. Complained of pain in the left knee and ankle. X-rays left femur left knee left ankle were negative also complained of pain in the left lower chest CT chest negative for any rib fractures or pneumothorax. Patient has chronic DJD of the lumbar spine. L-spine x-ray negative for any fracture mild UTI treated with Rocephin patient being discharged home on Levaquin for UTI and [place] for the pain. She was advised to follow up up with the orthopedic Dr through her primary Dr for the knee pains Consults/Reason for consult None Operations or Procedures CT chest without contrast Multiple x-rays Condition at Discharge: Fair Final Diagnosis/Problems List Acute pain left knee and ankle status post mechanical fall: X-ray left femur left knee left ankle negative Chronic DJD lumbar spine, LS spine negative for any fracture DVT ruled out left lower extremety Hypotension Diabetes History of kidney stones UTI urine cultures Rocephin Discharge Disposition: Home Discharge Instruct/Medications Diet: Cardiac 2g Na,low cholest Activity: Light activity Follow Up/Referral: Follow up With your primary Dr Follow up with the orthopedic Dr through your primary Dr for the knee pains Medications: [place] [facility] (Time Taken for discharge summary 35 minutes) Discharge Statement: "Patient was advised to return to the ER or call 911 if any headaches, dizziness, shortness of breath, chest pain, abdominal pain, bleeding, fevers, or worsening of medical condition. Patient was counseled about treatment plan, medications, possible side effects, patient�verbalized understanding. All questions were answered to the best of my ability. This discharge took greater then 30 minutes in planning, reviewing documentation, counseling the patient, and discussing with other team members." ASSESSMENT ASSESSMENT Hospital Course Improved Assessment Acute pain left knee and ankle status post mechanical fall: X-ray left femur left knee left ankle negative Chronic DJD lumbar spine, LS spine negative for any fracture DVT ruled out left lower extremety Hypotension Diabetes History of kidney stones UTI urine cultures Rocephin Date of Service: March 16, 2025 Billing Provider: SAMPSON BLAKELY MD Common Visit Codes: 51172-IHN/OBS DISCH DAY >30min SAMPSON BLAKELY MD March 16, 2025 13:29
[2025-03-16 14:46] VITALS: BP 130/63; PULSE 71; RESP 18; TEMP 36.6
== END 2025-03-16 15:20 | disposition home or self-care (01) | DRG 563 ==
LOC: EDBD 10:45 → ER 10:45 → OVERFLOW 15:39 → TELE-WESTW 18:30
PROVIDERS: ADMIT Family Medicine; ATTEND Family Medicine
DX: S93.402A Sprain of unspecified ligament of left ankle, initial encounter (principal); N30.01 Acute cystitis with hematuria; S86.812A Strain of other muscle(s) and tendon(s) at lower leg level, left leg, initial encounter; M47.816 Spondylosis without myelopathy or radiculopathy, lumbar region; S30.0XXA Contusion of lower back and pelvis, initial encounter; E11.9 Type 2 diabetes mellitus without complications; I10 Essential (primary) hypertension; E87.6 Hypokalemia; H91.92 Unspecified hearing loss, left ear; I95.9 Hypotension, unspecified; W10.9XXA Fall (on) (from) unspecified stairs and steps, initial encounter; Y93.01 Activity, walking, marching and hiking; Z88.5 Allergy status to narcotic agent; Z90.49 Acquired absence of other specified parts of digestive tract; Z98.891 History of uterine scar from previous surgery; Z87.442 Personal history of urinary calculi; Y92.89 Other specified places as the place of occurrence of the external cause; Y99.8 Other external cause status
CPT/HCPCS: 36415; 71250; 72131; 73562; 73590; 80048; 80053; 81001; 82962; 83036; 85025; 93970; 96361; 96374; G0378; J2405